=== PATIENT | male | born 1965 | race Asian ===

== ENCOUNTER 2023-03-16 23:50 | Emergency (ER) | payer SELFPAY ==
--- NOTE | 2023-03-17 02:09 | EDPHYS ---
Physician Documentation [facility] Name: Shaun Carney Age: 57 yrs Sex: Male : 1965 Arrival Date: 03/16/2023 Time: 23:50 Bed 17 Private MD: ED Physician Joselito Grissom HPI: 03/17 00:25 This 57 yrs old Male presents to ER via Unassigned with complaints of Head snw Injury-Adult. 00:25 The patient or guardian reports pain. The complaints affect the forehead. Context of snw injury: The problem was sustained at home, resulted from pt slipped in shower and struck occiput, c/o frontal OSUNA, no LOC. Onset: The symptoms/episode began/occurred suddenly, just prior to arrival. The patient has not experienced similar symptoms in the past. It is unknown whether or not the patient has recently seen a physician. denies taking blood thinners. Historical: - Allergies: 00:25 No Known Allergies; snw - PMHx: 00:25 Hypertensive disorder; snw - Immunization history:: Adult Immunizations up to date. - Social history:: Smoking status: Patient denies any tobacco usage or history of. ROS: 00:24 Constitutional: Negative for fever, chills, and weight loss, Eyes: Negative for injury, snw pain, redness, and discharge, ENT: Negative for injury, pain, and discharge, Neck: Negative for injury, pain, and swelling, Cardiovascular: Negative for chest pain, palpitations, and edema, Respiratory: Negative for shortness of breath, cough, wheezing, and pleuritic chest pain, Abdomen/GI: Negative for abdominal pain, nausea, vomiting, diarrhea, and constipation, Back: Negative for injury and pain, : Negative for injury, bleeding, discharge, and swelling, MS/Extremity: Negative for injury and deformity, Skin: Negative for injury, rash, and discoloration, Psych: Negative for depression, anxiety, suicide ideation, homicidal ideation, and hallucinations. 00:24 Neuro: Positive for frontal headache. Exam: 00:24 Constitutional: This is a well developed, well nourished patient who is awake, alert, snw and in no acute distress. Head/Face: Normocephalic, atraumatic. Eyes: Pupils equal round and reactive to light, extra-ocular motions intact. Lids and lashes normal. Conjunctiva and sclera are non-icteric and not injected. Cornea within normal limits. Periorbital areas with no swelling, redness, or edema. ENT: Nares patent. No nasal discharge, no septal abnormalities noted. Tympanic membranes are normal and external auditory canals are clear. Oropharynx with no redness, swelling, or masses, exudates, or evidence of obstruction, uvula midline. Mucous membranes moist. Neck: Trachea midline, no thyromegaly or masses palpated, and no cervical lymphadenopathy. Supple, full range of motion without nuchal rigidity, or vertebral point tenderness. No Meningismus. Chest/axilla: Normal chest wall appearance and motion. Nontender with no deformity. No lesions are appreciated. Cardiovascular: Regular rate and rhythm with a normal S1 and S2. No gallops, murmurs, or rubs. Normal PMI, no JVD. No pulse deficits. Respiratory: Lungs have equal breath sounds bilaterally, clear to auscultation and percussion. No rales, rhonchi or wheezes noted. No increased work of breathing, no retractions or nasal flaring. Abdomen/GI: Soft, non-tender, with normal bowel sounds. No distension or tympany. No guarding or rebound. No evidence of tenderness throughout. Back: No spinal tenderness. No costovertebral tenderness. Full range of motion. Skin: Warm, dry with normal turgor. Normal color with no rashes, no lesions, and no evidence of cellulitis. MS/ Extremity: Pulses equal, no cyanosis. Neurovascular intact. Full, normal range of motion. Neuro: Awake and alert, GCS 15, oriented to person, place, time, and situation. Cranial nerves II-XII grossly intact. Motor strength 5/5 in all extremities. Sensory grossly intact. Cerebellar exam normal. Normal gait. Psych: Awake, alert, with orientation to person, place and time. Behavior, mood, and affect are within normal limits. Vital Signs: 00:00 BP 160 / 95; Pulse 70; Resp 16; Temp 98.4(O); Pulse Ox 100% on R/A; Pain 3/10; sg5 02:00 BP 139 / 87; Pulse 56; Resp 16; Pulse Ox 98% on R/A; sg5 02:15 BP 141 / 80; Pulse 53; Resp 20; Pulse Ox 96% on R/A; sg5 00:00 Pain Scale: Adult sg5 Nik Coma Score: 00:00 Eye Response: spontaneous(4). Motor Response: obeys commands(6). Verbal Response: sg5 oriented(5). Total: 15. 00:25 Eye Response: spontaneous(4). Motor Response: obeys commands(6). Verbal Response: snw oriented(5). Total: 15. 00:26 Eye Response: spontaneous(4). Motor Response: obeys commands(6). Verbal Response: snw oriented(5). Total: 15. MDM: 00:20 Patient medically screened. joselo 00:26 Differential diagnosis: Contusion of Hematoma on Intracranial bleed- Concussion. Data snw reviewed: vital signs, nurses notes, radiologic studies. Counseling: I had a detailed discussion with the patient and/or guardian regarding the historical points, exam findings, and any diagnostic results supporting the discharge/admit diagnosis, radiology results, the need for outpatient follow up, to return to the emergency department if symptoms worsen or persist or if there are any questions or concerns that arise at home. Special discussion: Based on the patient's history, exam and DX evaluation, there is no indication for emergent intervention or inpatient TX. It is understood by the patient/guardian that if the SXs persist or worsen they need to return immediately for re-evaluation. Based on the history and exam findings, there is no indication for further emergent testing or inpatient evaluation. I discussed with the patient/guardian the need to see the primary care provider for further evaluation of the symptoms. 03/17 00:21 Order name: CT Head C Spine joselo Administered Medications: No medications were administered Disposition Summary: 03/17/23 02:08 Discharge Ordered Location: Home snw Condition: Stable snw Diagnosis - Fall on same level from slipping, tripping and stumbling with subsequent striking snw against object - Unspecified injury of head, initial encounter snw Followup: snw - With: Emergency Department - When: As needed - Reason: Worsening of condition Followup: snw - With: Private Physician - When: 2 - 3 days - Reason: Recheck today's complaints, Continuance of care, Re-evaluation by your physician Discharge Instructions: - Discharge Summary Sheet snw - Cervical Radiculopathy snw - Head Injury, Adult snw - Fall Prevention in the Home, Adult snw - Rehydration, Adult snw Forms: - Medication Reconciliation Form snw - Thank You Letter snw - Antibiotic Education snw - Prescription Opioid Use snw - Patient Portal Instructions snw - Leadership Thank You Letter snw Prescriptions: - orphenadrine citrate 100 mg Oral Tablet Sustained Release - take 1 tablet by ORAL route 2 times per day As needed; 20 tablet; Refills: 0, snw Product Selection Permitted Signatures: Dispatcher [employer] EDMS Joselito Grissom MD MD cha Waters, Shelly, OUTDOOR FITNESS TRAINER-C OUTDOOR FITNESS TRAINER-Csnw Kay Powers, RN RN sg5
--- NOTE | 2023-03-17 02:09 | ER ---
Nurse's Notes [facility] Name: Shaun Carney Age: 57 yrs Sex: Male : 1965 Arrival Date: 03/16/2023 Time: 23:50 Bed 17 Private MD: Diagnosis: Fall on same level from slipping, tripping and stumbling with subsequent striking against object;Unspecified injury of head, initial encounter Presentation: 03/17 00:00 Chief complaint: Patient states: Fell in shower hit back of head on wall, no LOC. sg5 Coronavirus screen: At this time, the client does not indicate any symptoms associated with coronavirus-19. Ebola Screen: No symptoms or risks identified at this time. Mechanism of Injury: resulted from a fall, from a standing position. Initial Sepsis Screen: Does the patient meet any 2 criteria? No. Patient's initial sepsis screen is negative. Does the patient have a suspected source of infection? No. Patient's initial sepsis screen is negative. Risk Assessment: Do you want to hurt yourself or someone else? Patient reports no desire to harm self or others. 00:00 Method Of Arrival: Ambulatory sg5 00:00 Acuity: KALA 3 sg5 02:16 Onset of symptoms was March 17, 2023. sg5 Triage Assessment: 00:00 General: Appears in no apparent distress. comfortable, Behavior is calm, cooperative, sg5 appropriate for age. Pain: Complains of pain in forehead Pain does not radiate. Pain currently is 3 out of 10 on a pain scale. Neuro: Level of Consciousness is awake, alert, obeys commands, Oriented to person, place, time, situation, Appropriate for age Reports headache frontal area. Historical: - Allergies: 00:25 No Known Allergies; snw - PMHx: 00:25 Hypertensive disorder; snw - Immunization history:: Adult Immunizations up to date. - Social history:: Smoking status: Patient denies any tobacco usage or history of. Screenin:16 [facility] ED Fall Risk Assessment (Adult) History of falling in the last 3 months, sg5 including since admission Yes- single mechanical fall (1 pt). Abuse screen: Denies threats or abuse. Nutritional screening: No deficits noted. Tuberculosis screening: No symptoms or risk factors identified. Assessment: 00:40 General: Appears in no apparent distress. comfortable, Behavior is calm, cooperative, sg5 appropriate for age. Pain: Complains of pain in forehead. Neuro: Level of Consciousness is awake, alert, obeys commands, Oriented to person, place, time, situation, Appropriate for age. Cardiovascular: Capillary refill < 3 seconds Patient's skin is warm and dry. Respiratory: Airway is patent Trachea midline Respiratory effort is even, unlabored, Respiratory pattern is regular, symmetrical. GI: No signs and/or symptoms were reported involving the gastrointestinal system. Abdomen is flat, non-distended. : No signs and/or symptoms were reported regarding the genitourinary system. EENT: No signs and/or symptoms were reported regarding the EENT system. Derm: No signs and/or symptoms reported regarding the dermatologic system. Musculoskeletal: No signs and/or symptoms reported regarding the musculoskeletal system. Vital Signs: 00:00 BP 160 / 95; Pulse 70; Resp 16; Temp 98.4(O); Pulse Ox 100% on R/A; Pain 3/10; sg5 02:00 BP 139 / 87; Pulse 56; Resp 16; Pulse Ox 98% on R/A; sg5 02:15 BP 141 / 80; Pulse 53; Resp 20; Pulse Ox 96% on R/A; sg5 00:00 Pain Scale: Adult sg5 Nik Coma Score: 00:00 Eye Response: spontaneous(4). Motor Response: obeys commands(6). Verbal Response: sg5 oriented(5). Total: 15. 00:25 Eye Response: spontaneous(4). Motor Response: obeys commands(6). Verbal Response: snw oriented(5). Total: 15. 00:26 Eye Response: spontaneous(4). Motor Response: obeys commands(6). Verbal Response: snw oriented(5). Total: 15. ED Course: 03/16 23:57 Patient arrived in ED. [email or web address] 03/17 00:00 Arm band placed on right wrist. sg5 00:20 Joselito Grissom MD is Attending Physician. joselo 00:24 Domonique Sargent FNP-C is PHCP. snw 00:34 Kay Powers, LG is Primary Nurse. sg5 00:38 Triage completed. sg5 01:18 CT Head C Spine In Process Unspecified. EDMS 02:16 Patient has correct armband on for positive identification. Bed in low position. Call sg5 light in reach. Side rails up X 1. Valuables Left with patient. Provided Education on: need for CT scan, prescription. 02:16 No provider procedures requiring assistance completed. Patient did not have IV access sg5 during this emergency room visit. Administered Medications: No medications were administered Medication: 02:17 VIS not applicable for this client. sg5 Outcome: 02:08 Discharge ordered by . juan a 02:16 Discharged to home ambulatory. sg5 02:16 Condition: good 02:16 Discharge instructions given to patient, Instructed on discharge instructions, follow up and referral plans. 02:17 Patient left the ED. sg5 Signatures: Dispatcher [employer] Joselito Moreno MD MD cha Waters, Shelly, CAR WASH MANAGER-C CAR WASH MANAGER-Tiffany Rubio [email or web address] Kay Powers, RN RN sg5
[2023-03-17 02:22] VITALS: TEMP 98.4
[2023-03-17 02:24] VITALS: BP 141/80; O2SAT 96
--- NOTE | 2023-03-17 16:09 | RAD REPORT ---
EXAM DESCRIPTION: CT - Head C Spine Mpr Wo Con - 03/17/2023 6:53 am CLINICAL HISTORY: HEADACHE TECHNIQUE: Contiguous axial CT images obtained through the brain without IV contrast. Coronal and sa gittal reformatted images were provided. This exam was performed according to our departmental dose-optimization program, which includes autom ated exposure control, adjustment of the mA and/or kV according to patient size and/or use of iterati ve reconstruction technique. COMPARISON: None available for comparison Brain: No significant white matter changes. No focal mass effect. Crooks-white matter differentiation is within normal limits. No hemorrhage. Ventricles: No ventriculomegaly or midline shift. Extra-axial spaces: No extra-axial collection or hemorrhage. Paranasal sinuses and mastoid air cells: Bilateral maxillary, right sphenoid, bilateral ethmoid and r ight frontal mucosal thickening with no air-fluid levels. Bones: Unremarkable Soft tissues: Unremarkable IMPRESSION: 1. No acute intracranial or extra-axial abnormality. 2. Paranasal sinus disease with no air-fluid levels. EXAM DESCRIPTION: Head C Spine Mpr Wo Con CLINICAL HISTORY: HEADACHE TECHNIQUE: Contiguous axial CT images obtained through the cervical spine without IV contrast. Cor onal and sagittal reformatted images also provided. This exam was performed according to our departmental dose-optimization program, which includes autom ated exposure control, adjustment of the mA and/or kV according to patient size and/or use of iterati ve reconstruction technique. COMPARISON: None available for comparison FINDINGS: Vertebra: No acute fracture or subluxation. Old avulsion injury at the tip of the spinous process of C7 versus nonunion of center of ossification Degenerative changes: Degenerative changes of the cervical spine with mild narrowing of the C6-C7 int ervertebral disc space. Limbus vertebra at C4 and C6. Small disc osteophyte complexes at C5-6 and C6-7. Prevertebral soft tissues: Unremarkable Lung apices: Clear IMPRESSION: 1. No acute cervical spine injury. 2. Degenerative changes of the cervical spine. Electronically signed by: Wojciech Hernandez MD 03/17/2023 1:42 AM CDT Due to temporary technical issues with the PACS/Fluency reporting system, reports are being signed by the in house radiologists without review as a courtesy to insure prompt reporting. The interpreting radiologist is fully responsible for the content of the report.
== END 2023-03-17 02:17 | disposition home or self-care (01) ==
LOC: ER 23:50
DX: S09.90XA Unspecified injury of head, initial encounter (principal); W18.2XXA Fall in (into) shower or empty bathtub, initial encounter
CPT/HCPCS: 70450; 72125; 99283